=== PATIENT | female | born 1980 | race Caucasian/White ===

== ENCOUNTER 2016-10-09 15:22 | Emergency (ER) | payer MEDICARE ==
[2016-10-09 16:22] LABS: URINE BILIRUBIN 1+ (NEGATIVE); URINE BLOOD 2+ (NEGATIVE); URINE GLUCOSE (UA) NORMAL (NORMAL); URINE KETONE NEGATIVE (NEGATIVE); URINE LEUKOCYTE ESTERASE TRACE (NEGATIVE); URINE NITRATE POSITIVE (NEGATIVE); URINE PROTEIN 1+ (NEGATIVE)
[2016-10-09 16:37] LABS: URINE RBC 0-5 /[HPF] (0-2); URINE SQUAMOUS EPITHELIAL CELL >20 /[HPF] (NONE SEEN)
[2016-10-09 16:38] LABS: URINE BACTERIA 3+ (NONE SEEN)
[2016-10-09 16:51] LABS: BASO % 0.1 % (0.1-1.2); EOS # 0.1 10_X3_uL (0.0-0.4); GRAN # 7.1 10_X3_uL (1.6-6.1); HEMATOCRIT 33.7 % (34-45); HEMOGLOBIN 11.5 g/dL (11.2-15.7); LYMPH # 1.7 10_X3_uL (1.2-3.7); LYMPH % 17.3 % (19.3-51.7); MEAN CORPUSCULAR HEMOGLOBIN 24.7 pg (27.0-33.0); MEAN CORPUSCULAR HGB CONC 34.1 g/dL (32.0-36.0); MEAN CORPUSCULAR VOLUME 72.5 fL (79-95); MEAN PLATELET VOLUME 11.4 fl (7.5-11.5); MONO # 1.1 10_X3_uL (0.2-0.9); MONO % 10.6 % (4.7-12.5); PLATELET COUNT 178 x10_3/uL (182-369); RED BLOOD COUNT 4.65 x10_6/uL (3.9-5.2); RED CELL DISTRIBUTION WIDTH 17.3 % (11.7-14.4)
[2016-10-09 17:11] LABS: ALBUMIN 3.5 gm/dL (3.4-5.0); ALKALINE PHOSPHATASE 82 U/L (50-136); ALT/SGPT 20 U/L (3.5-33.9); AST/SGOT 21 U/L (7.04-26.96); BILIRUBIN,TOTAL 0.37 mg/dL (0.0-1.0); BLOOD UREA NITROGEN 26 mg/dL (7-18); CALCIUM 9.3 mg/dL (8.7-10.7); CARBON DIOXIDE 24 mmol/L (21-32); CREATININE 0.9 mg/dL (0.6-1.3); GLUCOSE,RANDOM 113 mg/dL (70-99); POTASSIUM 3.7 mmol/L (3.5-5.1); SODIUM 131 mmol/L (136-145); TOTAL PROTEIN 7.8 gm/dL (6.4-8.2)
== END 2016-10-09 18:07 | disposition home or self-care (01) ==
LOC: ER 15:22
PROVIDERS: Internal Medicine
DX: N39.0 Urinary tract infection, site not specified (principal); J02.9 Acute pharyngitis, unspecified; R51 Headache; Z86.19 Personal history of other infectious and parasitic diseases; F17.210 Nicotine dependence, cigarettes, uncomplicated; F19.10 Other psychoactive substance abuse, uncomplicated
CPT/HCPCS: 36415; 71020; 80053; 80307; 81001; 81025; 83605; 85025; 87040; 87070; 87880; 99070; 99283-25